=== PATIENT | female | born 1945 | race Caucasian/White ===

== ENCOUNTER 2017-07-06 05:25 | Inpatient (IN) | payer MEDICARE, BC ==
[2017-07-06] VITALS (24 sets, daily range): BP systolic 109–158; BP diastolic 54–76; PULSE 72–89; RESP 14–20; Ht 162.6 cm; Wt 87.4 kg
[~2017-07-06] VITALS: Ht 162.6 cm; Wt 87.4 kg
[~2017-07-06 05:25] MED LIST: POLYMYXIN/BACITRACIN 1L IRRIG IRR ONE
[2017-07-06] MEDS ORDERED: CEFAZOLIN 2 GM/50 ML (PMX) 50 ML IVPB SCH (06:00)
[2017-07-06] MEDS ORDERED: LACTATED RINGER'S 1,000 ML IV* SCH (06:00)
[2017-07-06] MEDS ORDERED: OMEP40CA6 PO (06:07)
[2017-07-06] MEDS ORDERED: METO-319 PO (06:13)
[2017-07-06] MEDS ORDERED: VALS320T11 PO (06:13)
[2017-07-06] MEDS ORDERED: HYDR-3605 PO (06:13)
[2017-07-06] MEDS ORDERED: ALBU18HF INHALATION (06:13)
[2017-07-06] MEDS ORDERED: DILT300C60 PO (06:13)
[2017-07-06] MEDS ORDERED: LATA2.5D2 BOTH EYES (06:13)
[2017-07-06] MEDS ORDERED: ATOR10TA65 PO (06:13)
[2017-07-06] MEDS ORDERED: ESTRD1 TD (06:13)
[2017-07-06] MEDS ORDERED: BUPIVACAINE 0.25% (MPF) 30 ML INJ ONE (06:35)
[2017-07-06] MEDS ORDERED: BUPIVACAINE 0.5%/EPI (SDV) 30 ML INJ ONE (06:35)
[2017-07-06] MEDS ORDERED: SURGIFOAM POWDER 1 GM KIT ONE ×2 (06:36→08:47)
[2017-07-06] MEDS ORDERED: POLYMYXIN/BACITRACIN 1L IRRIG ONE (06:36)
[2017-07-06] MEDS ORDERED: THROMBIN 5000 UNIT VIAL ONE (06:36)
--- NOTE | 2017-07-06 06:58 | HPN ---
Date/Time of Note Date/Time of Note DATE: 07/06/17 TIME: 06:58 Interval H&P Admission Note Pt. seen H&P reviewed: No system changes GARRET ARCHER MD Jul 06, 2017 06:58
[2017-07-06] MEDS ORDERED: DIPHENHYDRAMINE 50 MG INJ IV PRN ×2 (07:00→10:30)
[2017-07-06] MEDS ORDERED: AL HYDROX/MG HYDROX/SIMETH 30 ML CUP PO PRN (07:00)
[2017-07-06] MEDS ORDERED: EPHEDrine SULFATE 50 MG/5 ML SYG ONE (07:00)
[2017-07-06] MEDS ORDERED: BISACODYL 10 MG SUPP PR PRN (07:00)
[2017-07-06] MEDS ORDERED: NALOXONE (0.4 MG/ML) INJ IV PRN (07:00)
[2017-07-06] MEDS ORDERED: ACETAMINOPHEN 325 MG TAB PO PRN (07:00)
[2017-07-06] MEDS ORDERED: ONDANSETRON 4 MG INJ IV PRN ×2 (07:00→10:30)
[2017-07-06] MEDS ORDERED: HYDROmorphONE 0.5 MG/0.5 ML SYG IV PRN (07:00)
[2017-07-06] MEDS ORDERED: CEPASTAT LOZENGE MT PRN (07:00)
[2017-07-06] MEDS ORDERED: CYCLOBENZAPRINE 10 MG TAB PO PRN (07:00)
[2017-07-06] MEDS ORDERED: DIPHENHYDRAMINE 25 MG CAP PO PRN (07:00)
[2017-07-06] MEDS ORDERED: SUGAMMADEX SODIUM 200 MG/2 ML VIAL IV ONE (07:00)
[2017-07-06] MEDS ORDERED: ROCURONIUM 50 MG INJ ONE (07:10)
[2017-07-06] MEDS ORDERED: PROPOFOL 20 ML ONE (07:10)
[2017-07-06] MEDS ORDERED: NEOSTIGMINE 3 MG/3 ML SYRINGE ONE (07:10)
[2017-07-06] MEDS ORDERED: CEFAZOLIN 1 GM INJ ONE ×2 (07:10→07:39)
[2017-07-06] MEDS ORDERED: MIDAZOLAM 1 MG/ML 2 ML INJ ONE (07:11)
[2017-07-06] MEDS ORDERED: DEXAMETHASONE 4 MG/ML 1 ML INJ ONE (07:11)
[2017-07-06] MEDS ORDERED: ONDANSETRON 4 MG INJ ONE (07:11)
[2017-07-06] MEDS ORDERED: FENTAnyl 50 MCG/ML VIAL ONE ×3 (07:11→11:13)
[2017-07-06] MEDS: CEFAZOLIN 1 GM/50 ML (PMX) 50 ML IVPB SCH ×3 (07:53→22:15)
[2017-07-06] MEDS ORDERED: THROMBIN 20000 UNIT ZFS ONE (08:11)
[2017-07-06] MEDS ORDERED: ROPIVACAINE 0.2% 20 ML VIAL ONE (08:13)
[2017-07-06] MEDS ORDERED: HEPARIN 1000 UNITS/ML 10 ML INJ ONE (08:37)
[2017-07-06] MEDS: DOCUSATE SODIUM 100 MG CAP PO SCH ×2 (09:00→20:46)
[2017-07-06] MEDS ORDERED: EPHEDrine SULFATE 50 MG/5 ML SYG IV PRN (10:30)
[2017-07-06] MEDS ORDERED: IPRATROPIUM (NEB) 0.5 MG/2.5 ML AMP HHN PRN (10:30)
[2017-07-06] MEDS ORDERED: FENTAnyl 50 MCG/ML VIAL IV PRN ×3 (10:30)
[2017-07-06] MEDS ORDERED: MIDAZOLAM 1 MG/ML 2 ML INJ IV PRN (10:30)
[2017-07-06] MEDS ORDERED: HYDROmorphONE (0.2 MG/ML) 10ML SYG IV PRN ×3 (10:30)
[2017-07-06] MEDS ORDERED: ALBUTEROL 0.083% (NEB) 2.5 MG/3 ML AMP HHN PRN (10:30)
[2017-07-06] MEDS ORDERED: MEPERIDINE 25 MG INJ IV PRN (10:30)
[2017-07-06] MEDS ORDERED: LABETALOL HCL 20MG INJ IV PRN (10:30)
[2017-07-06] MEDS ORDERED: hydrALAzine 20 MG INJ IV PRN (10:30)
[2017-07-06] MEDS ORDERED: OXYCODONE/ACETAMINOPHEN (5/325) TAB PO PRN ×2 (10:30)
[2017-07-06] MEDS ORDERED: TRIMETHOBENZAMIDE 100 MG/ML VIAL IM PRN (10:30)
--- NOTE | 2017-07-06 11:45 | SIPON ---
Date/Time of Note Date/Time of Note DATE: 07/06/17 TIME: 11:44 Operative Report Preoperative Diagnosis L4-5 degenerative spondylolisthesis and stenosis Postoperative Diagnosis L4-5 degenerative spondylolisthesis and stenosis Operation/Procedure Performed L4-5 decompression and instrumented fusion Surgeon see signature line campus administrative assistant AL Heller Anesthesia: general Estimated blood loss: 200 - 250 ml's Transfusion Required none Specimen L4-5 disc Grafts/Implants Pedicle screws and cages Complications none GARRET ARCHER MD Jul 06, 2017 11:45
[2017-07-06] MEDS: HYDROmorphONE 0.2 MG/ML PCA IV SCH (12:05)
--- NOTE | 2017-07-06 12:54 | OPR ---
DATE OF OPERATION: 07/06/2017 PREOPERATIVE DIAGNOSIS: Grade I degenerative spondylolisthesis at L4-L5 with severe stenosis. POSTOPERATIVE DIAGNOSIS: Grade I degenerative spondylolisthesis at L4-L5 with severe stenosis. PROCEDURE: 1. Bilateral pedicle screw placement at L4 and L5. 2. Use of an [employer] navigation for placement of pedicle screws. 3. Duong-Iam osteotomy bilaterally at L4-5. 4. Central decompressive laminectomy at L4-5 for stenosis with decompression of L4 and L5 nerve roots bilaterally. 5. Transforaminal lumbar interbody fusion at L4-5. 6. Placement of intervertebral biomechanical device at L4-L5. 7. Left iliac crest bone marrow aspiration. 8. Posterolateral fusion at L4-5. 9. Use of C-arm fluoroscopy with interpretation without radiologist present. 10. Intraoperative neuromonitoring (3-4 or 5 hours). 11. Use of operative microscope. 12. Autograft. 13. Allograft. IMPLANTS: 1. Earl Pedicle screws 6.5 x 40 mm left L4, right L4, right L5 and 6.5 x 45 mm left L5. 2. [place] TLIF cage 10 mm. 3. Forty millimeter lupis. 4. Fibergraft matrix. FINDINGS: Neuromonitoring at the start of the case revealed left L4 amplitude down to 40%, right L4 amplitude down to 20%, left L5 amplitude down to 70%, right L5 amplitude down to 60%, bilateral S1 amplitude down to 60%, bilateral. At the end of the case, nerve signals remained unchanged. The patient had severe stenosis at L4-L5 with spondylolisthesis. ESTIMATED BLOOD LOSS: 250 mL. DRAINS: One. SPECIMENS: L4-5 disk. COMPLICATIONS OF PROCEDURES: None. ANESTHESIOLOGIST: Ross Pisano MD TYPE OF ANESTHESIA: General. INDICATIONS FOR PROCEDURE: This is a 72-year-old female with back and lower extremity pain in the setting of severe stenosis with spondylolisthesis. She failed nonoperative measures, therefore, I recommended proceeding with the above -mentioned surgery. Preoperatively, we discussed the risks, benefits, and alternatives. She understood and wished to proceed. DESCRIPTION OF PROCEDURE IN DETAIL: The patient was identified in the preoperative holding area, given Ancef antibiotic, taken to the operating room, where she was successfully placed under general anesthesia. Neuromonitoring leads were placed, sequential compressive devices were applied. Flores catheter was introduced. Neuromonitoring was utilized during the procedure for 3.5 hours to include SSEP, MEP, and EMG. Start time was 8:00 a.m., closure time was 11:30 a.m. The patient was placed on the operating table in prone position over a Dima frame. All bony prominences were well padded. The back was then prepped and draped in the usual sterile fashion. Using the C-arm fluoroscope, I identified the incision site. I anesthetized the skin and subcutaneous tissue with Marcaine and epinephrine. Incision was then made over the L4-5 level. Incision was taken down to dorsal fascia, where it was incised with Bovie cautery. I then subperiosteally dissected the L4 and L5 lamina out to the transverse processes. The patient has significant bony overgrowth altering the field and therefore, the [employer] navigation system was utilized for placement of the pedicle screws. Once I had exposed the area, I confirmed the level with the C-arm fluoroscope. I then set up the [employer] navigation system measuring all points. Once this was done, I proceeded to place the pedicle screws at L4 and L5 bilaterally while utilizing the [employer] system. Once the pedicle screws were in place, I stimulated each of the screws and there was no evidence of cortical breech. Next, I performed a left iliac crest bone marrow aspiration. Next, I performed a central decompressive laminectomy at the L4-5 level. Patient had severe stenosis. I was able to decompress the central canal and the ligamentum flavum as well as the lateral recess. This was done in order to alleviate the stenosis and beyond what was required in order to perform an interbody fusion. I then performed bilateral Duong-Iam osteotomies in order to be able to reduce the spondylolisthesis. Once this was done, the microscope was brought in and a left-sided annulotomy was performed at the L4-5 level followed by radical diskectomy. I then placed various trials and chose the appropriate graft height. I then took the PEEK cage, within which I placed allograft and I impacted the intervertebral biomechanical device into the L5-S1 level to complete the transforaminal lumbar interbody fusion at this level. I then took autograft and allograft and impacted this into the disk space. Next, I irrigated the wound. The Dima frame was let down. Microscope was taken off the field. I then placed the appropriate size rods bilaterally and compressed across the screws and placed the set screws with final tightening per manufacture's specifications. A Valsalva maneuver was performed and there was no leak of CSF. The wound was irrigated again. Hemostasis achieved with bipolar cautery and Surgifoam. At this point, I took final AP and lateral images. I was happy with the placement of the hardware in alignment of the spine. I then prepared the posterolateral gutters and placed allograft mixed with autograft in the posterolateral gutters for posterolateral fusion at L4-5. I then passed an epidural catheter through which I injected 100 mcg of fentanyl mixed with 2 mL of Marcaine 0.25% preservative-free. I then placed a deep subfascial drain and closed the deep fascia with #1 Vicryl stitch. I closed subcutaneous tissue with 2-0 Vicryl stitch. A 4-0 Monocryl closure was then performed. Dermabond and sterile dressings were then applied. The patient was then awakened from anesthesia and taken to recovery room in stable condition. Lap, sponge, and instrument counts were correct x2. There were no apparent complications during the procedure. The patient will be admitted to the [facility] for routine postoperative care to include pain control, neurovascular checks, antibiotics and physical therapy. Dictated By: GARRET KNAPP/CAROL Conf#: [id number] DID#: [id number] [id number]
[2017-07-06] MEDS ORDERED: NON-FORMULARY/PATIENT OWN MED (Omeprazole* 40 MG) PO SCH (13:30)
[2017-07-06] MEDS: D5W-0.45 NACL + KCL 20 MEQ 1,000 ML IV SCH ×3 (13:37→22:20)
[2017-07-06] MEDS ORDERED: METOPROLOL (XL) 50 MG TAB PO SCH (14:00)
[2017-07-06] MEDS ORDERED: DILTIAZEM (CD) 300 MG CAP PO SCH (14:00)
[2017-07-06] MEDS ORDERED: VALSARTAN 160 MG TAB PO SCH (14:00)
--- NOTE | 2017-07-06 14:38 | CONS ---
DATE OF ADMISSION: 07/06/2017 DATE OF CONSULTATION: TYPE OF CONSULTATION: Postop medical consultation. Thank you very much, Dr. Mariscal for allowing me to evaluate this 72-year-old female who just unde rwent lumbar back surgery. HISTORICAL EVENTS: As you well know, this patient has had intractable sciatica being evaluated last in 05/2017 with onset of symptoms in October without improvement from medications and epidurals. B ecause of progressive worsening it was felt that surgical intervention was needed. Postoperatively, in the recovery room, she is comfortable without cough, wheezing, shortness of breath, nausea, vomi ting, abdominal or chest pain. PAST MEDICAL HISTORY: Includes: 1. Hypertension. 2. Hyperlipidemia. 3. GERD. MEDICATIONS: Prior to admission include: Claritin 10 mg per day, diltiazem 240 per day, estradiol 0.5 mg patch twice weekly, Lipitor 20, omeprazole 40, ProAir as needed and Valsartan 160. PAST MEDICAL HISTORY: History of asthma. ALLERGIES: NONE. FAMILY HISTORY: To be reviewed later. PHYSICAL EXAMINATION: GENERAL: [place] female in no acute distress. VITAL SIGNS: BP 128/80, pulse 70, respirations are 20, she was afebrile. EYES: Extraocular muscles were full. NOSE, MOUTH, AND THROAT: Normal. NECK: Supple. There was no jugular venous distention, thyroid enlargement or adenopathy. LUNGS: Clear. HEART: Rhythm regular. ABDOMEN: Nontender. Liver and spleen were not palpable. No masses or tenderness were noted. EXTREMITIES: No edema. Calves nontender. Pulses were reduced in the lower extremities. IMPRESSION: 1. Stable postop lumbar back surgery. 2. History of hypertension. We will continue her BP medications and monitor BP throughout. 3. Hyperlipidemia, undergoing preoperative cardiac eval with no intervention thought needed. Cardi ac status will be monitored carefully with respect to congestive heart failure. We will monitor katy ly for signs and symptoms of thromboembolic disease. Dictated By: MARYANN CESPEDES/CAROL Conf#: [id number] DID#: [id number]
--- NOTE | 2017-07-06 16:06 | RADRPT ---
PROCEDURE: Intraoperative imaging of the lumbar spine with fluoroscopy. CLINICAL INDICATION: Back pain. Intraoperative. TECHNIQUE: 9 images of the lumbar spine were obtained in the operating room with an image intensif ier. No radiologist was in attendance. Fluoroscopy time is 24 seconds. COMPARISON: No prior study is available for comparison. FINDINGS: For the purposes of this report, the last apparent true disc level is considered to be L5-S1. Based on this, final images demonstrate posterior fusion with pedicle screws and connecting rods at L4 an d L5. An intervertebral disc spacer is present at L4-5. IMPRESSION: 1. Intraoperative imaging of the lumbar spine. RPTAT: QQ .Bret Gómez MD, MD Date Time Electronically viewed and signed by .Bret Gómez MD, on 07/06/2017 16:06 .R/
[2017-07-06] MEDS: LATANOPROST 0.005% 2.5 ML OPH BOTH EYES SCH (20:46)
[2017-07-06] MEDS: METOPROLOL (XL) 50 MG TAB PO SCH (20:47)
[2017-07-06] MEDS: ATORVASTATIN 20 MG TAB PO SCH (20:48)
[2017-07-06] MEDS: VALSARTAN 160 MG TAB PO SCH (20:49)
[2017-07-06] MEDS: DILTIAZEM (CD) 300 MG CAP PO SCH (20:51)
[2017-07-07] MEDS: HYDROmorphONE 0.2 MG/ML PCA IV SCH (04:21)
[2017-07-07 04:50] VITALS: BP 148/72; PULSE 70; RESP 19
[2017-07-07 04:59] LABS: BASOPHILS % 0.1 % (0.0-2.0); HEMATOCRIT 34.9 % (37.0-47.0); LYMPHOCYTES # 1.1 10^3/ul (0.8-2.9); MEAN CORPUSCULAR HEMOGLOBIN 26.2 pg (29.0-33.0); MEAN CORPUSCULAR HGB CONC 31.5 g/dl (32.0-37.0); MEAN CORPUSCULAR VOLUME 83.1 fl (82.0-101.0); MEAN PLATELET VOLUME 9.2 fl (7.4-10.4); MONOCYTE # 0.9 10^3/ul (0.3-0.9); MONOCYTES % 6.4 % (0.0-11.0); NEUTROPHIL # 11.6 10^3/ul (1.6-7.5); NEUTROPHILS % 84.9 % (39.0-77.0); PLATELET COUNT 318 10^3/UL (140-415); RED CELL DISTRIBUTION WIDTH 13.9 % (11.5-14.5); WHITE BLOOD COUNT 13.7 10^3/ul (4.8-10.8)
[2017-07-07 05:25] LABS: CALCIUM 8.6 mg/dl (8.4-10.2); CREATININE 0.61 mg/dl (0.44-1.00); MAGNESIUM 1.8 mg/dl (1.7-2.5); POTASSIUM 4.3 mmol/L (3.5-5.1)
[2017-07-07] MEDS ORDERED: PANTOPRAZOLE 40 MG INJ IV SCH (06:00)
[2017-07-07 07:30] VITALS: BP 129/60; RESP 20
--- NOTE | 2017-07-07 08:27 | CONS ---
Date/Time of Note Date/Time of Note DATE: 07/07/17 TIME: 08:26 Assessment/Plan Assessment/Plan Additional Assessment/Plan 1. Doing well post op lumbar spine surgery. 2. HBP, well controlled. 3. Hx asthma, Asx 4. Hyperlipidemia, statin has been continued. 5. Hx GERD, quiescent Consultation Date/Type/Reason Admit Date/Time Jul 06, 2017 at 05:25 Initial Consult Date Detailed Summary Respiratory: No cough, No shortness of breath Cardiovascular: No chest pain Gastrointestinal: no complaints Genitourinary: other (griggs in place) Musculoskeletal: back pain (moderate and no leg radicular pain) Exam/Review of Systems Vital Signs Vitals Vital Signs Date Time Temp Pulse Resp B/P Pulse Ox O2 Delivery O2 Flow Rate FiO2 07/07/17 07:30 97.6 65 20 129/60 96 07/07/17 04:50 Nasal Cannula 2.0 Intake and Output 07/06/17 07/06/17 07/07/17 15:00 23:00 07:00 Intake Total 2200 ml 950 ml 1350 ml Output Total 1995 ml 350 ml 1310 ml Balance 205 ml 600 ml 40 ml Exam Neck: No jvd Respiratory: clear to auscultation Cardiovascular: regular rate and rhythm Gastrointestinal: soft Extremities: No edema (and no calf tend bilat) Results Result Diagram: 07/07/17 0435 07/07/17 0435 Results 24 hrs Laboratory Tests Test 07/07/17 04:35 White Blood Count 13.7 H Red Blood Count 4.20 Hemoglobin 11.0 L Hematocrit 34.9 L Mean Corpuscular Volume 83.1 Mean Corpuscular Hemoglobin 26.2 L Mean Corpuscular Hemoglobin Concent 31.5 L Red Cell Distribution Width 13.9 Platelet Count 318 Mean Platelet Volume 9.2 Neutrophils % 84.9 H Lymphocytes % 8.0 L Monocytes % 6.4 Eosinophils % 0.0 Basophils % 0.1 Nucleated Red Blood Cells % 0.0 Neutrophils # 11.6 H Lymphocytes # 1.1 Monocytes # 0.9 Eosinophils # 0.0 Basophils # 0.0 Nucleated Red Blood Cells # 0.0 Sodium Level 141 Potassium Level 4.3 Chloride Level 106 Carbon Dioxide Level 24 Anion Gap 15 Blood Urea Nitrogen 9 Creatinine 0.61 Glucose Level 135 Calcium Level 8.6 Magnesium Level 1.8 Medications Medications Current Medications Lactated Ringer's 1,000 ml @ 20 mls/hr Q24H IV* ; Start 07/06/17 at 06:00; Stop 07/08/17 at 07:59 Potassium Chloride/Dextrose/ Sod Cl (D5-1/2ns + KCl 20 Meq) 1,000 ml @ 100 mls/ hr Q10H IV Last administered on 07/06/17t 22:20; Admin Dose 100 MLS/HR; Start 07/06/17 at 06:58 Acetaminophen/ Hydrocodone Bitart ([place] (10/325)) 1 tab Q4H PRN PO PAIN LEVEL 1-5; Start 07/07/17 at 10:00 Acetaminophen/ Hydrocodone Bitart ([place] (10/325)) 2 tab Q4H PRN PO PAIN LEVEL 6-10; Start 07/07/17 at 10:00 Hydromorphone HCl (Dilaudid) 0.2 mg Q1H PRN IV BREAKTHROUGH PAIN; Start at 07:00 Ondansetron HCl (Zofran Inj) 4 mg Q6H PRN IV NAUSEA AND/OR VOMITING; Start at 07:00 Bisacodyl (Dulcolax Supp) 10 mg DAILY PRN [place] CONSTIPATION; Start 07/06/17 at 07:00 Docusate Sodium (Colace) 100 mg BID PO ; Start 07/06/17 at 09:00 Pantoprazole (Protonix Iv) 40 mg DAILY@06 IV Last administered on 07/07/17t 05 :24; Admin Dose 40 MG; Start 07/07/17 at 06:00 Al Hydrox/Mg Hydrox/Simethicone (Mag-Al Plus) 15 ml Q6H PRN PO CONSTIPATION/ DYSPEPSIA; Start 07/06/17 at 07:00 Acetaminophen (Tylenol Tab) 650 mg Q4H PRN PO [place] OR TEMP GREATER THAN 101.3F; Start 07/06/17 at 07:00 Cyclobenzaprine HCl (Flexeril) 10 mg TID PRN PO MUSCLE SPASMS; Start 07/06/17 at 07:00 Phenol (Cepastat Lozenge) 1 lozenge PRN PRN [place] SORE THROAT; Start 07/06/17 at 07:00 Diphenhydramine HCl (Benadryl) 25 mg Q6H PRN PO ITCHING; Start 07/06/17 at 07: 00 Diphenhydramine HCl (Benadryl) 25 mg Q6H PRN IV ITCHING; Start 07/06/17 at 07: 00 Naloxone HCl (Narcan) 0.2 mg Q2M PRN IV RR 8 BREATHS/MIN OR LESS; Start at 07:00 Hydromorphone HCl (Dilaudid PARKING GARAGE MANAGER) PARKING GARAGE MANAGER to be started in PACU Q4PCA IV Last administered on 07/07/17 04:21; Admin Dose 6 MG; Start 07/06/17 at 07:00 Miscellaneous Information 1. Hold PARKING GARAGE MANAGER at 1,000... PARKING GARAGE MANAGER IV ; Start 07/06/17 at 07 :00 Atorvastatin Calcium (Lipitor) 20 mg QHS PO Last administered on 07/06/17 20: 48; Admin Dose 20 MG; Start 07/06/17 at 21:00 Estradiol (Estraderm 0.1 Mg/24 Hr Patch) 1 patch WeFr@09 TRANSDERM ; Start at 09:00 Latanoprost (Xalatan) 1 drop QHS BOTH EYES Last administered on 07/06/17 20: 46; Admin Dose 1 DROP; Start 07/06/17 at 21:00 Diltiazem HCl (Cardizem Cd) 300 mg HS PO Last administered on 07/06/17 20:51 ; Admin Dose 300 MG; Start 07/06/17 at 21:00 Metoprolol Succinate (Toprol Xl) 50 mg HS PO Last administered on 07/06/17 20 :47; Admin Dose 50 MG; Start 07/06/17 at 21:00 Valsartan (Diovan) 320 mg HS PO Last administered on 07/06/17 20:49; Admin Dose 320 MG; Start 07/06/17 at 21:00 MARYANN FERNANDEZ MD Jul 07, 2017 08:27
[2017-07-07] MEDS: DOCUSATE SODIUM 100 MG CAP PO SCH ×2 (08:43→21:18)
[2017-07-07] MEDS: ESTRADIOL 0.1 MG/24 HR PATCH TRANSDERM SCH (08:44)
[2017-07-07] MEDS ORDERED: HYDROCODONE/APAP (10/325) TAB PO PRN (10:00)
--- NOTE | 2017-07-07 12:20 | PN ---
Date/Time of Note Date/Time of Note DATE: 07/07/17 TIME: 12:18 Assessment/Plan Lines/Catheters IV Catheter Type (from [facility]): Peripheral IV Flores in Place (from [facility]): Yes Exam/Review of Systems Vital Signs Vitals Vital Signs Date Time Temp Pulse Resp B/P Pulse Ox O2 Delivery O2 Flow Rate FiO2 07/07/17 07:30 97.6 65 20 129/60 96 07/07/17 04:50 Nasal Cannula 2.0 Intake and Output 07/06/17 07/06/17 07/07/17 14:59 22:59 06:59 Intake Total 2200 ml 950 ml 1350 ml Output Total 1995 ml 350 ml 1310 ml Balance 205 ml 600 ml 40 ml Results Result Diagram: 07/07/175 07/07/17 043MIN MURILLO PA-C Jul 07, 2017 12:20 Exam Free Text/Dictation drain output 65 this morning dressing intact NVID Results Result Diagram: 07/07/1743407/07/17 0435 MIN BLACK PA-C Jul 07, 2017 12:20
--- NOTE | 2017-07-07 12:21 | PN ---
Date/Time of Note Date/Time of Note DATE: 07/07/17 TIME: 12:20 Assessment/Plan Lines/Catheters IV Catheter Type (from Nrsg): Peripheral IV Lfores in Place (from Nrsg): Yes Assessment/Plan Assessment/Plan s/p TLIF POD #1 continue PT, ambulate continue pain control routine care Subjective 24 Hr Interval Summary c/o LBP leg pain improved Exam/Review of Systems Vital Signs Vitals Vital Signs Date Time Temp Pulse Resp B/P Pulse Ox O2 Delivery O2 Flow Rate FiO2 07/07/17 07:30 97.6 65 20 129/60 96 07/07/17 04:50 Nasal Cannula 2.0 Intake and Output 07/06/17 07/06/17 07/07/17 14:59 22:59 06:59 Intake Total 2200 ml 950 ml 1350 ml Output Total 1995 ml 350 ml 1310 ml Balance 205 ml 600 ml 40 ml Exam Free Text/Dictation drain output 320 dressing intact NVID Results Result Diagram: 07/07/17 0435 07/07/17 0435 MIN BLACK PA-C Jul 07, 2017 12:21
[2017-07-07] MEDS: D5W-0.45 NACL + KCL 20 MEQ 1,000 ML IV SCH ×2 (12:58→22:13)
[2017-07-07 14:53] VITALS: BP 145/64; RESP 20
[2017-07-07 19:09] VITALS: BP 138/61; RESP 18
[2017-07-07] MEDS: LATANOPROST 0.005% 2.5 ML OPH BOTH EYES SCH (21:17)
[2017-07-07] MEDS: ATORVASTATIN 20 MG TAB PO SCH (21:18)
[2017-07-07] MEDS: VALSARTAN 160 MG TAB PO SCH (21:18)
[2017-07-07] MEDS: METOPROLOL (XL) 50 MG TAB PO SCH (21:19)
[2017-07-07] MEDS: DILTIAZEM (CD) 300 MG CAP PO SCH (21:25)
[2017-07-08 00:34] VITALS: BP 132/66; RESP 16
[2017-07-08] MEDS: PANTOPRAZOLE (EC) 40 MG TAB PO SCH (05:54)
[2017-07-08 05:58] LABS: BASOPHIL # 0.1 10^3/ul (0.0-0.1); BASOPHILS % 0.4 % (0.0-2.0); EOSINOPHILS # 0.1 10^3/ul (0.0-0.5); EOSINOPHILS % 0.8 % (0.0-7.0); HEMATOCRIT 32.1 % (37.0-47.0); HEMOGLOBIN 10.3 g/dl (12.0-16.0); LYMPHOCYTES # 2.6 10^3/ul (0.8-2.9); LYMPHOCYTES % 20.2 % (15.0-51.0); MEAN CORPUSCULAR HGB CONC 32.1 g/dl (32.0-37.0); MEAN CORPUSCULAR VOLUME 84.3 fl (82.0-101.0); MEAN PLATELET VOLUME 9.3 fl (7.4-10.4); MONOCYTE # 1.2 10^3/ul (0.3-0.9); MONOCYTES % 9.4 % (0.0-11.0); NEUTROPHIL # 8.9 10^3/ul (1.6-7.5); NEUTROPHILS % 68.7 % (39.0-77.0); PLATELET COUNT 287 10^3/UL (140-415); RED BLOOD COUNT 3.81 10^6/ul (4.20-5.40); RED CELL DISTRIBUTION WIDTH 13.9 % (11.5-14.5)
[2017-07-08 06:35] LABS: CALCIUM 8.4 mg/dl (8.4-10.2); CREATININE 0.65 mg/dl (0.44-1.00); MAGNESIUM 1.9 mg/dl (1.7-2.5); POTASSIUM 4.5 mmol/L (3.5-5.1)
--- NOTE | 2017-07-08 07:50 | CONS ---
Date/Time of Note Date/Time of Note DATE: 07/08/17 TIME: 07:48 Assessment/Plan Assessment/Plan Additional Assessment/Plan 1. Doing well post op lumbar spine surgery. 2. HBP, well controlled. 3. Hx asthma,not symptomatic 4. Hyperlipidemia, statin has been continued. 5. Hx GERD, quiescent 6. Sl inc wbc, was given decadron post op, prior urine cult was neg, will repeat today. Consultation Date/Type/Reason Admit Date/Time Jul 06, 2017 at 05:25 Detailed Summary Respiratory: No cough, No shortness of breath Cardiovascular: No chest pain Gastrointestinal: no complaints Genitourinary: other (griggs in place) Musculoskeletal: back pain (moderate) Exam/Review of Systems Vital Signs Vitals Vital Signs Date Time Temp Pulse Resp B/P Pulse Ox O2 Delivery O2 Flow Rate FiO2 07/08/17 05:00 16 07/08/17 00:34 98.4 66 132/66 92 07/07/17 04:50 Nasal Cannula 2.0 Intake and Output 07/07/17 07/07/17 07/08/17 15:00 23:00 07:00 Intake Total 1860 ml 840 ml Output Total 1010 ml 580 ml Balance 850 ml 260 ml Exam Neck: No jvd Respiratory: clear to auscultation Cardiovascular: regular rate and rhythm Gastrointestinal: soft Extremities: pitting pedal edema (and no calf tend), No edema Results Result Diagram: 07/08/17 0455 07/08/17 0455 Results 24 hrs Laboratory Tests Test 07/08/17 04:55 White Blood Count 13.0 H Red Blood Count 3.81 L Hemoglobin 10.3 L Hematocrit 32.1 L Mean Corpuscular Volume 84.3 Mean Corpuscular Hemoglobin 27.0 L Mean Corpuscular Hemoglobin Concent 32.1 Red Cell Distribution Width 13.9 Platelet Count 287 Mean Platelet Volume 9.3 Neutrophils % 68.7 Lymphocytes % 20.2 Monocytes % 9.4 Eosinophils % 0.8 Basophils % 0.4 Nucleated Red Blood Cells % 0.0 Neutrophils # 8.9 H Lymphocytes # 2.6 Monocytes # 1.2 H Eosinophils # 0.1 Basophils # 0.1 Nucleated Red Blood Cells # 0.0 Sodium Level 140 Potassium Level 4.5 Chloride Level 105 Carbon Dioxide Level 26 Anion Gap 14 Blood Urea Nitrogen 15 Creatinine 0.65 Glucose Level 99 Calcium Level 8.4 Magnesium Level 1.9 Medications Medications Current Medications Lactated Ringer's 1,000 ml @ 20 mls/hr Q24H IV* ; Start 07/06/17 at 06:00; Stop 07/08/17 at 07:59 Potassium Chloride/Dextrose/ Sod Cl (D5-1/2ns + KCl 20 Meq) 1,000 ml @ 100 mls/ hr Q10H IV Last administered on 07/06/17 22:20; Admin Dose 100 MLS/HR; Start 07/06/17 at 06:58 Acetaminophen/ Hydrocodone Bitart ([place] (10/325)) 1 tab Q4H PRN PO PAIN LEVEL 1-5; Start 07/07/17 at 10:00 Acetaminophen/ Hydrocodone Bitart ([place] (10/325)) 2 tab Q4H PRN PO PAIN LEVEL 6-10; Start 07/07/17 at 10:00 Hydromorphone HCl (Dilaudid) 0.2 mg Q1H PRN IV BREAKTHROUGH PAIN; Start at 07:00 Ondansetron HCl (Zofran Inj) 4 mg Q6H PRN IV NAUSEA AND/OR VOMITING; Start at 07:00 Bisacodyl (Dulcolax Supp) 10 mg DAILY PRN [place] CONSTIPATION; Start 07/06/17 at 07:00 Docusate Sodium (Colace) 100 mg BID PO Last administered on 07/07/17 21:18; Admin Dose 100 MG; Start 07/06/17 at 09:00 Al Hydrox/Mg Hydrox/Simethicone (Mag-Al Plus) 15 ml Q6H PRN PO CONSTIPATION/ DYSPEPSIA; Start 07/06/17 at 07:00 Acetaminophen (Tylenol Tab) 650 mg Q4H PRN PO [place]IS OR TEMP GREATER THAN 101.3F; Start 07/06/17 at 07:00 Cyclobenzaprine HCl (Flexeril) 10 mg TID PRN PO MUSCLE SPASMS Last administered on 07/07/17 08:43; Admin Dose 10 MG; Start 07/06/17 at 07:00 Phenol (Cepastat Lozenge) 1 lozenge PRN PRN [place] SORE THROAT; Start 07/06/17 at 07:00 Diphenhydramine HCl (Benadryl) 25 mg Q6H PRN PO ITCHING; Start 07/06/17 at 07: 00 Diphenhydramine HCl (Benadryl) 25 mg Q6H PRN IV ITCHING; Start 07/06/17 at 07: 00 Naloxone HCl (Narcan) 0.2 mg Q2M PRN IV RR 8 BREATHS/MIN OR LESS; Start at 07:00 Hydromorphone HCl (Dilaudid YACHT HAND) YACHT HAND to be started in PACU Q4PCA IV Last administered on 07/07/17 04:21; Admin Dose 6 MG; Start 07/06/17 at 07:00 Miscellaneous Information 1. Hold YACHT HAND at 1,000... YACHT HAND IV ; Start 07/06/17 at 07 :00 Atorvastatin Calcium (Lipitor) 20 mg QHS PO Last administered on 07/07/17 21: 18; Admin Dose 20 MG; Start 07/06/17 at 21:00 Estradiol (Estraderm 0.1 Mg/24 Hr Patch) 1 patch WeFr@09 TRANSDERM ; Start at 09:00 Latanoprost (Xalatan) 1 drop QHS BOTH EYES Last administered on 07/07/17 21: 17; Admin Dose 1 DROP; Start 07/06/17 at 21:00 Diltiazem HCl (Cardizem Cd) 300 mg HS PO Last administered on 07/07/17 21:25 ; Admin Dose 300 MG; Start 07/06/17 at 21:00 Metoprolol Succinate (Toprol Xl) 50 mg HS PO Last administered on 07/07/17 21 :19; Admin Dose 50 MG; Start 07/06/17 at 21:00 Valsartan (Diovan) 320 mg HS PO Last administered on 07/07/17 21:18; Admin Dose 320 MG; Start 07/06/17 at 21:00 Pantoprazole (Protonix Tab) 40 mg DAILY@06 PO Last administered on 07/08/17 05:54; Admin Dose 40 MG; Start 07/08/17 at 06:00 MARYANN FERNANDEZ MD Jul 08, 2017 07:50
[2017-07-08 07:58] VITALS: BP 141/64; PULSE 70; RESP 18
[2017-07-08] MEDS: D5W-0.45 NACL + KCL 20 MEQ 1,000 ML IV SCH ×2 (08:18→18:58)
--- NOTE | 2017-07-08 08:30 | PN ---
Date/Time of Note Date/Time of Note DATE: 07/08/17 TIME: 08:27 Assessment/Plan Lines/Catheters IV Catheter Type (from Nrsg): Peripheral IV Griggs in Place (from Nrsg): Yes Assessment/Plan Assessment/Plan s/p lumbar fusion POD #2 will D/C griggs and HEAD COUNSELOR today transition to PO meds continue PT, ambulate anticipate D/C drain and D/C home tomorrow stat U/S BLE r/o DVT today - please call me with results [id number] Subjective 24 Hr Interval Summary patient doing well c/o LBP c/o right leg swelling a/w mild right calf pain denies SOB/CP Exam/Review of Systems Vital Signs Vitals Vital Signs Date Time Temp Pulse Resp B/P Pulse Ox O2 Delivery O2 Flow Rate FiO2 07/08/17 07:58 97.9 70 18 141/64 96 Room Air 07/07/17 04:50 2.0 Intake and Output 07/07/17 07/07/17 07/08/17 15:00 23:00 07:00 Intake Total 1860 ml 840 ml Output Total 1010 ml 580 ml Balance 850 ml 260 ml Exam Free Text/Dictation AOX3 NVID dressing intact drain output 190cc/24h, 80cc/last shift right calf - mild TTP, no cording noted Results Result Diagram: 07/08/17 0455 07/08/17 0455 MIN BLACK PA-C Jul 08, 2017 08:30
[2017-07-08] MEDS: DOCUSATE SODIUM 100 MG CAP PO SCH ×2 (09:51→21:03)
--- NOTE | 2017-07-08 09:54 | RADRPT ---
PROCEDURE: US Lower extremity venous, bilateral CLINICAL INDICATION: Bilateral lower extremity swelling TECHNIQUE: Multiple sonographic images of the bilateral lower extremity deep venous system was obt ained utilizing grayscale, color-flow, compressive sonography and doppler imaging with augmentation. The images were reviewed on a PACS workstation. COMPARISON: None. FINDINGS: There is normal compressibility and flow within the right common femoral, superficial femoral , post erior tibial, peroneal and popliteal veins. There is normal compressibility and flow within the left common femoral, superficial femoral , poste rior tibial, peroneal and popliteal veins. IMPRESSION: No evidence of deep venous thrombosis in bilateral lower extremities, as above. RPTAT: EE Physician Maida Date Time Electronically viewed and signed by Physician Maida on 07/08/2017 09:53 /
[2017-07-08 10:56] LABS: ADD UMIC YES; UR ASCORBIC ACID NEGATIVE (NEGATIVE); UR BILIRUBIN (Dip) NEGATIVE (NEGATIVE); UR BLOOD (Dip) 2+ mg/dL (NEGATIVE); UR CLARITY CLEAR (CLEAR); UR COLOR YELLOW (YELLOW); UR GLUCOSE (Dip) NEGATIVE (NEGATIVE); UR KETONES (Dip) NEGATIVE (NEGATIVE); UR LEUKOCYTE ESTERASE (Dip) NEGATIVE Leu/ul (NEGATIVE); UR NITRITE (Dip) NEGATIVE (NEGATIVE); UR RBC 84 /HPF (0-5); UR SPECIFIC GRAVITY (Dip) 1.014 (1.003-1.030); UR TOTAL PROTEIN (Dip) NEGATIVE (NEGATIVE); UR UROBILINOGEN (Dip) NEGATIVE (NEGATIVE)
[2017-07-08] MEDS: HYDROCODONE/APAP (10/325) TAB PO PRN ×2 (13:19→19:05)
[2017-07-08 14:00] VITALS: BP 129/61; RESP 18
[2017-07-08 19:40] VITALS: BP 151/70; RESP 18
[2017-07-08] MEDS: LATANOPROST 0.005% 2.5 ML OPH BOTH EYES SCH (21:03)
[2017-07-08] MEDS: ATORVASTATIN 20 MG TAB PO SCH (21:04)
[2017-07-08] MEDS: VALSARTAN 160 MG TAB PO SCH (21:04)
[2017-07-08] MEDS: METOPROLOL (XL) 50 MG TAB PO SCH (21:04)
[2017-07-08] MEDS: DILTIAZEM (CD) 300 MG CAP PO SCH (21:05)
[2017-07-08 23:30] VITALS: BP 142/64; PULSE 74; RESP 18
[2017-07-09] MEDS: HYDROCODONE/APAP (10/325) TAB PO PRN ×2 (03:15→08:20)
[2017-07-09 03:30] VITALS: BP 149/67; PULSE 75; RESP 18
[2017-07-09] MEDS: D5W-0.45 NACL + KCL 20 MEQ 1,000 ML IV SCH (04:58)
[2017-07-09 05:51] LABS: BASOPHIL # 0.1 10^3/ul (0.0-0.1); BASOPHILS % 0.8 % (0.0-2.0); EOSINOPHILS # 0.4 10^3/ul (0.0-0.5); EOSINOPHILS % 3.7 % (0.0-7.0); HEMATOCRIT 34.4 % (37.0-47.0); HEMOGLOBIN 10.7 g/dl (12.0-16.0); LYMPHOCYTES # 3.1 10^3/ul (0.8-2.9); LYMPHOCYTES % 26.3 % (15.0-51.0); MEAN CORPUSCULAR HEMOGLOBIN 26.7 pg (29.0-33.0); MEAN CORPUSCULAR HGB CONC 31.1 g/dl (32.0-37.0); MEAN CORPUSCULAR VOLUME 85.8 fl (82.0-101.0); MEAN PLATELET VOLUME 9.2 fl (7.4-10.4); MONOCYTE # 1.3 10^3/ul (0.3-0.9); NEUTROPHIL # 6.9 10^3/ul (1.6-7.5); NEUTROPHILS % 57.7 % (39.0-77.0); PLATELET COUNT 314 10^3/UL (140-415); RED BLOOD COUNT 4.01 10^6/ul (4.20-5.40); RED CELL DISTRIBUTION WIDTH 13.7 % (11.5-14.5); WHITE BLOOD COUNT 11.9 10^3/ul (4.8-10.8)
[2017-07-09 06:13] LABS: CALCIUM 7.9 mg/dl (8.4-10.2); CREATININE 0.67 mg/dl (0.44-1.00); MAGNESIUM 1.8 mg/dl (1.7-2.5); POTASSIUM 4.1 mmol/L (3.5-5.1)
[2017-07-09] MEDS: PANTOPRAZOLE (EC) 40 MG TAB PO SCH (06:27)
[2017-07-09 07:00] VITALS: BP 142/65; RESP 20
[2017-07-09] MEDS: ESTRADIOL 0.1 MG/24 HR PATCH TRANSDERM SCH (08:20)
[2017-07-09] MEDS: DOCUSATE SODIUM 100 MG CAP PO SCH (08:20)
--- NOTE | 2017-07-09 08:42 | CONS ---
Date/Time of Note Date/Time of Note DATE: 07/09/17 TIME: 08:41 Assessment/Plan Assessment/Plan Additional Assessment/Plan 1. Doing well post op lumbar spine surgery, labs rev 2. HBP, well controlled. 3. Hx asthma,not symptomatic 4. Hyperlipidemia, statin has been continued. 5. Hx GERD, quiescent 6. WBC is less today, urine cult pending 7. OK to dc Consultation Date/Type/Reason Admit Date/Time Jul 06, 2017 at 05:25 Detailed Summary Respiratory: No cough, No shortness of breath Cardiovascular: No chest pain Gastrointestinal: no complaints Genitourinary: no complaints Musculoskeletal: back pain (is mild) Neurologic: No headache Exam/Review of Systems Vital Signs Vitals Vital Signs Date Time Temp Pulse Resp B/P Pulse Ox O2 Delivery O2 Flow Rate FiO2 07/09/17 07:00 98.7 72 20 142/65 94 07/09/17 03:30 Room Air 07/07/17 04:50 2.0 Intake and Output 07/08/17 07/08/17 07/09/17 15:00 23:00 07:00 Intake Total 660 ml 600 ml Output Total 675 ml 765 ml Balance -15 ml -165 ml Exam Neck: No jvd Respiratory: clear to auscultation Cardiovascular: regular rate and rhythm Gastrointestinal: soft Extremities: No edema (and no calf tend) Results Result Diagram: 07/09/17 0510 07/09/17 0510 Results 24 hrs Laboratory Tests Test 07/08/17 09:45 07/09/17 05:10 Urine Color YELLOW Urine Clarity CLEAR Urine pH 5.0 Urine Specific [place] 1.014 Urine Ketones NEGATIVE Urine Nitrite NEGATIVE Urine Bilirubin NEGATIVE Urine Urobilinogen NEGATIVE Urine Leukocyte Esterase NEGATIVE Urine Microscopic RBC 84 H Urine Microscopic WBC 4 Urine Hemoglobin 2+ H Urine Glucose NEGATIVE Urine Total Protein NEGATIVE White Blood Count 11.9 H Red Blood Count 4.01 L Hemoglobin 10.7 L Hematocrit 34.4 L Mean Corpuscular Volume 85.8 Mean Corpuscular Hemoglobin 26.7 L Mean Corpuscular Hemoglobin Concent 31.1 L Red Cell Distribution Width 13.7 Platelet Count 314 Mean Platelet Volume 9.2 Neutrophils % 57.7 Lymphocytes % 26.3 Monocytes % 11.0 Eosinophils % 3.7 Basophils % 0.8 Nucleated Red Blood Cells % 0.0 Neutrophils # 6.9 Lymphocytes # 3.1 H Monocytes # 1.3 H Eosinophils # 0.4 Basophils # 0.1 Nucleated Red Blood Cells # 0.0 Sodium Level 140 Potassium Level 4.1 Chloride Level 103 Carbon Dioxide Level 24 Anion Gap 17 H Blood Urea Nitrogen 13 Creatinine 0.67 Glucose Level 96 Calcium Level 7.9 L Magnesium Level 1.8 Medications Medications Current Medications Potassium Chloride/Dextrose/ Sod Cl (D5-1/2ns + KCl 20 Meq) 1,000 ml @ 100 mls/ hr Q10H IV Last administered on 07/06/17 22:20; Admin Dose 100 MLS/HR; Start 07/06/17 at 06:58 Acetaminophen/ Hydrocodone Bitart ([place] (10/325)) 1 tab Q4H PRN PO PAIN LEVEL 1-5 Last administered on 07/09/17 08:20; Admin Dose 1 TAB; Start 07/07/17 at 10:00 Acetaminophen/ Hydrocodone Bitart ([place] (10/325)) 2 tab Q4H PRN PO PAIN LEVEL 6-10 Last administered on 07/08/17 23:07; Admin Dose 2 TAB; Start 07/07/17 at 10:00 Hydromorphone HCl (Dilaudid) 0.2 mg Q1H PRN IV BREAKTHROUGH PAIN Last administered on 07/08/17 21:00; Admin Dose 0.2 MG; Start 07/06/17 at 07:00 Ondansetron HCl (Zofran Inj) 4 mg Q6H PRN IV NAUSEA AND/OR VOMITING; Start at 07:00 Bisacodyl (Dulcolax Supp) 10 mg DAILY PRN [place] CONSTIPATION; Start 07/06/17 at 07:00 Docusate Sodium (Colace) 100 mg BID PO Last administered on 07/09/17 08:20; Admin Dose 100 MG; Start 07/06/17 at 09:00 Al Hydrox/Mg Hydrox/Simethicone (Mag-Al Plus) 15 ml Q6H PRN PO CONSTIPATION/ DYSPEPSIA; Start 07/06/17 at 07:00 Acetaminophen (Tylenol Tab) 650 mg Q4H PRN PO [place] OR TEMP GREATER THAN 101.3F; Start 07/06/17 at 07:00 Cyclobenzaprine HCl (Flexeril) 10 mg TID PRN PO MUSCLE SPASMS Last administered on 07/07/17 08:43; Admin Dose 10 MG; Start 07/06/17 at 07:00 Phenol (Cepastat Lozenge) 1 lozenge PRN PRN [place] SORE THROAT; Start 07/06/17 at 07:00 Diphenhydramine HCl (Benadryl) 25 mg Q6H PRN PO ITCHING; Start 07/06/17 at 07: 00 Diphenhydramine HCl (Benadryl) 25 mg Q6H PRN IV ITCHING; Start 07/06/17 at 07: 00 Naloxone HCl (Narcan) 0.2 mg Q2M PRN IV RR 8 BREATHS/MIN OR LESS; Start at 07:00 Hydromorphone HCl (Dilaudid PROPERTY INS[employer]ANCE [employer]ENT) PROP[employer]ENT to be started in PACU Q4PCA IV Last administered on 07/07/17 04:21; Admin Dose 6 MG; Start 07/06/17 at 07:00 Miscellaneous Information 1. Hold PROP[employer] INS[employer]ENT at 1,000... PROP[employer] INS[employer] AGENT IV ; Start 07/06/17 at 07 :00 Atorvastatin Calcium (Lipitor) 20 mg QHS PO Last administered on 07/08/17 21: 04; Admin Dose 20 MG; Start 07/06/17 at 21:00 Estradiol (Estraderm 0.1 Mg/24 Hr Patch) 1 patch WeFr@09 TRANSDERM ; Start at 09:00 Latanoprost (Xalatan) 1 drop QHS BOTH EYES Last administered on 07/08/17 21: 03; Admin Dose 1 DROP; Start 07/06/17 at 21:00 Diltiazem HCl (Cardizem Cd) 300 mg HS PO Last administered on 07/08/17 21:05 ; Admin Dose 300 MG; Start 07/06/17 at 21:00 Metoprolol Succinate (Toprol Xl) 50 mg HS PO Last administered on 07/08/17 21 :04; Admin Dose 50 MG; Start 07/06/17 at 21:00 Valsartan (Diovan) 320 mg HS PO Last administered on 07/08/17 21:04; Admin Dose 320 MG; Start 07/06/17 at 21:00 Pantoprazole (Protonix Tab) 40 mg DAILY@06 PO Last administered on 07/09/17 06:27; Admin Dose 40 MG; Start 07/08/17 at 06:00 MARYANN FERNANDEZ MD Jul 09, 2017 08:42
== END 2017-07-09 11:32 | disposition home or self-care (01) | DRG 455 ==
LOC: REC 05:25 → MS1 13:15
PROVIDERS: ADMIT Specialist; ATTEND Specialist
PROC: 0SG0071 Fusion of Lumbar Vertebral Joint with Autologous Tissue Substitute, Posterior Approach, Posterior Column, Open Approach (ICD-10-PCS; 2017-07-06)
PROC: 0ST20ZZ Resection of Lumbar Vertebral Disc, Open Approach (ICD-10-PCS; 2017-07-06)
PROC: 07DR3ZZ Extraction of Iliac Bone Marrow, Percutaneous Approach (ICD-10-PCS; 2017-07-06)
PROC: 4A11X4G Monitoring of Peripheral Nervous Electrical Activity, Intraoperative, External Approach (ICD-10-PCS; 2017-07-06)
PROC: 8E0WXBF Computer Assisted Procedure of Trunk Region, With Fluoroscopy (ICD-10-PCS; 2017-07-06)
PROC: 0SG00AJ Fusion of Lumbar Vertebral Joint with Interbody Fusion Device, Posterior Approach, Anterior Column, Open Approach (ICD-10-PCS; principal; 2017-07-06 07:00)
DX: M43.16 Spondylolisthesis, lumbar region (principal); I10 Essential (primary) hypertension; M48.061 Spinal stenosis, lumbar region without neurogenic claudication; E78.5 Hyperlipidemia, unspecified; K21.9 Gastro-esophageal reflux disease without esophagitis
CPT/HCPCS: 72114; 80048; 81001; 83735; 85025; 86850; 86900; 86901; 86920; 86999; 87086; 88304; 93970; 97116; 97162; 97530; C9113; J0690; J1100; J1170; J1644; J2250; J2405; J2710; J2795; J3010; J3480; J7120